=== PATIENT | female | born 1955 | race Caucasian/White ===

== ENCOUNTER 2021-05-30 13:44 | Emergency (ER) | payer MEDICARE, MEDICAID ==
[~2021-05-30] VITALS: Ht 160 cm; Wt 47.7 kg
[~2021-05-30 13:44] MED LIST: ALPR0.5T8 PO; ASPI-1009 PO; CLOP75TA33 PO; DOCU100C40 PO; HYDR1TAB PO; MIRT-116 PO; PHEN100C4 PO; SIMV20TA5 PO
[2021-05-30 14:18] LABS: BASOPHILS % (AUTO) 0.3 % (0-1); EOSINOPHILS # (AUTO) 0.2 X10'3 (0-0.9); EOSINOPHILS % (AUTO) 3.8 % (0-6); HEMATOCRIT 34.7 % (35.0-45.0); LYMPHOCYTES # (AUTO) 0.6 X10'3 (1.1-4.8); LYMPHOCYTES % (AUTO) 13.9 % (21-51); MEAN CORPUSCULAR HEMOGLOBIN 25.1 PG (27.0-31.0); MEAN CORPUSCULAR HGB CONC 31.8 g/dL (33.0-36.5); MEAN CORPUSCULAR VOLUME 78.9 FL (78-98); MEAN PLATELET VOLUME 7.5 FL (7.4-10.4); MONOCYTES # (AUTO) 0.4 X10'3 (0-0.9); NEUTROPHILS # (AUTO) 3.4 X10'3 (1.8-7.7); PLATELET COUNT 200 X10'3 (140-440); RED BLOOD COUNT 4.39 X10'6 (4.20-5.60); RED CELL DISTRIBUTION WIDTH 15.4 % (11.5-14.5); WHITE BLOOD COUNT 4.6 X10'3 (4.5-11.0)
[2021-05-30 14:36] LABS: ALANINE AMINOTRANSFERASE 25 U/L (12-78); ALBUMIN 3.2 G/DL (3.4-5.0); ALBUMIN/GLOBULIN RATIO 0.8 (1.1-1.5); ALKALINE PHOSPHATASE 358 IU/L (46-116); ANION GAP 4 (8-16); ASPARTATE AMINO TRANSFERASE 24 U/L (10-37); BILIRUBIN,TOTAL 0.2 MG/DL (0.1-1.0); CALCIUM 8.5 MG/DL (8.5-10.1); CHLORIDE 108 MMOL/L (99-107); GLUCOSE 133 MG/DL (70-104); SODIUM 141 MMOL/L (135-145); TOTAL CARBON DIOXIDE 29.4 MMOL/L (24-32); TOTAL PROTEIN 7.4 G/DL (6.4-8.2)
[2021-05-30 14:44] LABS: BLOOD UREA NITROGEN 20 MG/DL (7-18); CREATININE 0.21 MG/DL (0.40-0.90); eGFR > 90 ML/MIN
[2021-05-30 14:46] LABS: BUN/CREATININE RATIO 95.2 (6.6-38.0)
[2021-05-30] MEDS ORDERED: normal saline 1000ML IV soln IVB ONE (15:30)
[2021-05-30 17:58] VITALS: BP 145/70
== END 2021-05-30 17:46 | disposition home or self-care (01) ==
LOC: ER 13:45
DX: R42 Dizziness and giddiness (principal); R94.4 Abnormal results of kidney function studies; R74.8 Abnormal levels of other serum enzymes; G82.20 Paraplegia, unspecified; R53.1 Weakness; G89.29 Other chronic pain; M25.512 Pain in left shoulder; M87.9 Osteonecrosis, unspecified; Z88.2 Allergy status to sulfonamides; Z88.1 Allergy status to other antibiotic agents; Z79.82 Long term (current) use of aspirin; Z79.899 Other long term (current) drug therapy; Z95.5 Presence of coronary angioplasty implant and graft
CPT/HCPCS: 36415; 71045; 80053; 83880; 84484; 85025; 93005; 96360; 99285; J7030

== ENCOUNTER 2022-08-19 10:34 | Emergency (ER) | payer MEDICARE, MEDICAID ==
[~2022-08-19] VITALS: Ht 160 cm; Wt 45.5 kg
[2022-08-19 10:41] VITALS: BP 133/85
[2022-08-19] MEDS ORDERED: CefTRIAXone/D5W-Rocephin 1gm 50 ML IV ONE (11:25)
[2022-08-19] MEDS ORDERED: methylPREDNISolone sod succ 125mg/2ml vial IV ONE (11:25)
[2022-08-19] MEDS ORDERED: ipratropium/albuterol 3ml nebule NEB ONE (11:25)
[2022-08-19 11:35] LABS: BASOPHILS % (AUTO) 0.5 % (0-1); EOSINOPHILS # (AUTO) 0.2 X10'3 (0-0.9); EOSINOPHILS % (AUTO) 2.7 % (0-6); HEMATOCRIT 37.3 % (35.0-45.0); HEMOGLOBIN 11.8 g/dl (12.0-16.0); LYMPHOCYTES # (AUTO) 0.8 X10'3 (1.1-4.8); LYMPHOCYTES % (AUTO) 14.3 % (21-51); MEAN CORPUSCULAR HEMOGLOBIN 25.5 PG (27.0-31.0); MEAN CORPUSCULAR HGB CONC 31.7 g/dL (33.0-36.5); MEAN CORPUSCULAR VOLUME 80.3 FL (78-98); MEAN PLATELET VOLUME 7.2 FL (7.4-10.4); MONOCYTES # (AUTO) 0.6 X10'3 (0-0.9); MONOCYTES % (AUTO) 10.7 % (2-12); NEUTROPHILS # (AUTO) 4.3 X10'3 (1.8-7.7); NEUTROPHILS % (AUTO) 71.8 % (42-75); PLATELET COUNT 226 X10'3 (140-440); RED BLOOD COUNT 4.65 X10'6 (4.20-5.60); RED CELL DISTRIBUTION WIDTH 15.5 % (11.5-14.5); WHITE BLOOD COUNT 5.9 X10'3 (4.5-11.0)
[2022-08-19 11:38] LABS: ALANINE AMINOTRANSFERASE 17 U/L (12-78); ALBUMIN 3.3 G/DL (3.4-5.0); ALBUMIN/GLOBULIN RATIO 0.8 (1.1-1.5); ALKALINE PHOSPHATASE 358 IU/L (46-116); ANION GAP 10 (8-16); ASPARTATE AMINO TRANSFERASE 11 U/L (10-37); BILIRUBIN,TOTAL 0.3 MG/DL (0.1-1.0); BLOOD UREA NITROGEN 7 MG/DL (7-18); CALCIUM 9.7 MG/DL (8.5-10.1); CHLORIDE 105 MMOL/L (99-107); CREATININE 0.35 MG/DL (0.40-0.90); GLUCOSE 115 MG/DL (70-104); SODIUM 142 MMOL/L (135-145); TOTAL CARBON DIOXIDE 27.5 MMOL/L (24-32); TOTAL PROTEIN 7.6 G/DL (6.4-8.2); eGFR > 90 ML/MIN
[2022-08-19] MEDS ORDERED: AZIT-164 PO (12:10)
[2022-08-19] MEDS ORDERED: PRED20TA PO (12:10)
== END 2022-08-19 12:41 | disposition home or self-care (01) ==
LOC: ER 10:35
DX: J44.1 Chronic obstructive pulmonary disease with (acute) exacerbation (principal); Z20.822 Contact with and (suspected) exposure to COVID-19; Z88.2 Allergy status to sulfonamides; Z88.1 Allergy status to other antibiotic agents
CPT/HCPCS: 36415; 71045; 80053; 83605; 83880; 85025; 87040; 87811; 93005; 94640; 96365; 96375; 99285; J0696; J2930; 94760; A4615

== ENCOUNTER 2023-09-25 11:39 | Emergency (ER) | payer MEDICARE, MEDICAID ==
[~2023-09-25 11:39] MED LIST changes: -MIRT-116 PO; +MIRT-142 PO
[2023-09-25 12:34] LABS: BASOPHILS % (AUTO) 0.7 % (0-1); EOSINOPHILS # (AUTO) 0.4 X10'3 (0-0.9); EOSINOPHILS % (AUTO) 5.4 % (0-6); HEMATOCRIT 37.2 % (35.0-45.0); HEMOGLOBIN 11.8 g/dl (12.0-16.0); LYMPHOCYTES # (AUTO) 0.8 X10'3 (1.1-4.8); LYMPHOCYTES % (AUTO) 11.8 % (21-51); MEAN CORPUSCULAR HEMOGLOBIN 25.8 PG (27.0-31.0); MEAN CORPUSCULAR HGB CONC 31.7 g/dL (33.0-36.5); MEAN CORPUSCULAR VOLUME 81.2 FL (78-98); MEAN PLATELET VOLUME 8.1 FL (7.4-10.4); MONOCYTES # (AUTO) 0.6 X10'3 (0-0.9); MONOCYTES % (AUTO) 8.5 % (2-12); NEUTROPHILS % (AUTO) 73.6 % (42-75); PLATELET COUNT 207 X10'3 (140-440); RED BLOOD COUNT 4.58 X10'6 (4.20-5.60); RED CELL DISTRIBUTION WIDTH 15.8 % (11.5-14.5); WHITE BLOOD COUNT 6.7 X10'3 (4.5-11.0)
[2023-09-25] MEDS ORDERED: albuterol 2.5 MG/3 ML nebule CONTNEB PRN (12:40)
[2023-09-25] MEDS: ipratropium 0.5 MG/2.5ML nebule IH ONE (12:54)
[2023-09-25 12:55] LABS: ALBUMIN 3.1 G/DL (3.4-5.0); ANION GAP 11 (8-16); BLOOD UREA NITROGEN 14 MG/DL (7-18); BUN/CREATININE RATIO 43.8 (10.0-20.0); CALCIUM 9.5 MG/DL (8.5-10.1); CHLORIDE 103 MMOL/L (99-107); CREATININE 0.32 MG/DL (0.40-0.90); GLUCOSE 106 MG/DL (70-104); POTASSIUM 4.2 MMOL/L (3.5-5.1); PRO BRAIN NATRIURETIC PEPTIDE 562 PG/ML (0-125); SODIUM 142 MMOL/L (135-145); TOTAL CARBON DIOXIDE 28.1 MMOL/L (24-32); eGFR > 90 ML/MIN
[2023-09-25 12:58] VITALS: PULSE 87; RESP 18; O2SAT 98
[2023-09-25 13:35] VITALS: PULSE 103; RESP 24; O2SAT 99
[2023-09-25] MEDS: methylPREDNISolone sod succ 125mg/2ml vial IV ONE (14:59)
[2023-09-25] MEDS: magnesium sulf-water 2g/50mL 50 ML IV ONE (15:00)
[2023-09-25] MEDS ORDERED: PRED20TA PO (17:11)
[2023-09-25 18:11] VITALS: BP 117/58; PULSE 93; RESP 17; TEMP 98.3; O2SAT 96
== END 2023-09-25 18:15 | disposition home or self-care (01) ==
LOC: ER 11:39
DX: J45.901 Unspecified asthma with (acute) exacerbation (principal); Z20.822 Contact with and (suspected) exposure to COVID-19; Z88.2 Allergy status to sulfonamides; Z79.82 Long term (current) use of aspirin; Z79.899 Other long term (current) drug therapy
CPT/HCPCS: 36415; 71046; 80048; 83605; 83880; 85025; 87040; 87502; 87503; 87811; 94640; 96365; 96366; 96375; 99284; A7015; J2919; Z7610; 94760; 96361; 96374

== ENCOUNTER 2023-10-11 12:41 | Emergency (ER) | payer MEDICARE, MEDICAID ==
[~2023-10-11] VITALS: Ht 160 cm; Wt 50.0 kg
[~2023-10-11 12:41] MED LIST changes: +PRED20TA PO
[2023-10-11 13:26] LABS: BASOPHILS % (AUTO) 0.3 % (0-1); EOSINOPHILS # (AUTO) 0.1 X10'3 (0-0.9); EOSINOPHILS % (AUTO) 2.4 % (0-6); HEMOGLOBIN 11.9 g/dl (12.0-16.0); LYMPHOCYTES # (AUTO) 0.4 X10'3 (1.1-4.8); LYMPHOCYTES % (AUTO) 7.5 % (21-51); MEAN CORPUSCULAR HEMOGLOBIN 25.7 PG (27.0-31.0); MEAN CORPUSCULAR VOLUME 80.3 FL (78-98); MEAN PLATELET VOLUME 7.6 FL (7.4-10.4); MONOCYTES # (AUTO) 0.7 X10'3 (0-0.9); MONOCYTES % (AUTO) 11.9 % (2-12); NEUTROPHILS # (AUTO) 4.3 X10'3 (1.8-7.7); NEUTROPHILS % (AUTO) 77.9 % (42-75); PLATELET COUNT 185 X10'3 (140-440); RED BLOOD COUNT 4.61 X10'6 (4.20-5.60); RED CELL DISTRIBUTION WIDTH 15.8 % (11.5-14.5); WHITE BLOOD COUNT 5.6 X10'3 (4.5-11.0)
[2023-10-11 13:49] LABS: ANION GAP 5 (8-16); BLOOD UREA NITROGEN 13 MG/DL (7-18); BUN/CREATININE RATIO 40.6 (10.0-20.0); CALCIUM 9.4 MG/DL (8.5-10.1); CHLORIDE 103 MMOL/L (99-107); CREATININE 0.32 MG/DL (0.40-0.90); GLUCOSE 143 MG/DL (70-104); POTASSIUM 3.5 MMOL/L (3.5-5.1); PRO BRAIN NATRIURETIC PEPTIDE 590 PG/ML (0-125); SODIUM 137 MMOL/L (135-145); TOTAL CARBON DIOXIDE 29.4 MMOL/L (24-32); eCRCL 135 ML/MIN; eGFR > 90 ML/MIN
[2023-10-11 15:25] VITALS: BP 120/70; PULSE 88; RESP 22; TEMP 98.2; O2SAT 97
== END 2023-10-11 15:26 | disposition home or self-care (01) ==
LOC: ER 12:42
DX: R06.09 Other forms of dyspnea (principal); J44.9 Chronic obstructive pulmonary disease, unspecified; Z88.2 Allergy status to sulfonamides; Z79.899 Other long term (current) drug therapy; Z79.82 Long term (current) use of aspirin; Z79.52 Long term (current) use of systemic steroids
CPT/HCPCS: 36415; 71045; 80048; 83880; 84484; 85025; 93005; 93880; 99285

== ENCOUNTER → 2025-02-07 | Emergency (ER) | payer MEDICARE, MEDICAID ==
[~2025-02-07] VITALS: Ht 160 cm; Wt 41.0 kg
[~2025-02-07] MED LIST changes: +ALBU18HF2 INH; +CEFP100S9 PO; +FERR325T28 PO; +FURO-150 PO; -PRED20TA PO; +ROSU40TA89 PO
--- NOTE | 2025-02-07 13:59 | Physician Documentation ---
History of Present Illness General Chief Complaint: Dizziness Stated Complaint: TREMORS Time Seen by MD: 13:40 History of Present Illness Initial Comments Patient has a history of seizures she takes Dilantin, patient has had several episodes of dizziness and shaking over last several days and she had an episode today which started a proximally an hour prior [facility]. The patient states he is feeling weak she has had multiple episodes like this she denies any fevers she thinks it might be related to her Dilantin she states she took 200 mg of her Dilantin last night instead of her normal 300. The patient denies any urinary symptoms the patient's symptoms are mild and persistent she denies any shortness of breath or chest pain. Medication Reconciliation Allergies: Coded Allergies: Sulfa (Sulfonamide Antibiotics) (Verified Allergy, Unknown, 02/07/25) levofloxacin (Verified Allergy, Unknown, 02/07/25) famotidine (Unverified Adverse Reaction, Severe, severe diarrhea, 02/07/25) Scheduled Aspirin (Aspirin), 325 MG PO HS, (Reported) Cefpodoxime Proxetil (Cefpodoxime Proxetil), 1 TAB PO Q12H Clopidogrel Bisulfate (Clopidogrel), 75 MG PO DAILY, (Reported) Docusate Sodium (Docusate Sodium), 2 CAP PO BID, (Reported) Ferrous Sulfate* (Ferrous Sulfate*), 1 TAB PO DAILY, (Reported) Furosemide* (Lasix*), 1 TAB PO DAILY, (Reported) Mirtazapine (Remeron), 15 MG PO HS, (Reported) Phenytoin Sodium Extended (Dilantin), 400 MG PO DAILY, (Reported) Rosuvastatin Calcium (Rosuvastatin Calcium), 1 TAB PO DAILY, (Reported) Scheduled PRN Albuterol Sulfate (Ventolin Hfa), 2 PUFFS INH Q4HPRN PRN for wheezing, (Reported) Discontinued Medications Alprazolam (Alprazolam), 0.25 MG PO HS, (Reported) Discontinued Reason: patient no longer taking Docusate Sodium (Docusate Sodium), 100 MG PO HS, (Reported) Discontinued Reason: patient no longer taking Hydrocodone/Acetaminophen (Vicodin 5-500 Tablet), 1 TAB PO BID, (Reported) Discontinued Reason: patient no longer taking Simvastatin (Simvastatin), 20 MG PO HS, (Reported) Discontinued Reason: patient no longer taking Past Medical History Past Medical History: Seizures, COPD, *INFECTIOUS DZ* Review of Systems All Other Systems at this time: Reviewed and Negative Physical Exam Physical Exam Vital Signs: Heart Rate: 123, Respiratory Rate: 18, BP: 181/139, Pulse Oximetry: 97, Weight: 41.000 Physical Exam VITALS: Reviewed and as above. GENERAL: Alert, no apparent distress. HEENT: Normocephalic, atraumatic, PERRL, EOMI, dry mucosa, no erythema RESPIRATORY: Lungs clear, normal breath sounds, no respiratory distress. CHEST: No accessory muscle use, no retractions CV: Tachycardic rate, rhythm, no edema, no murmur, No: JVD GI: Soft, non-tender, bowels sounds present, no rebound, guarding, or rigidity BACK: No CVA tenderness, or swelling MUSCULOSKELETAL: No deformities, no edema SKIN: Warm and dry, pale NEURO: Oriented x4, mild resting tremor of the upper extremities PSYCH: Normal mood and affect, no agitation Progress Results/Orders Results/Orders Orders - JERARDO CORONA MD Chest,Single View (02/07/25 13:12) Monitor (02/07/25 13:12) Saline Lock (02/07/25 13:12) Oxygen (02/07/25 13:12) Hs Troponin I W Calculations (02/07/25 16:12) Cult Urine + [place] [address] (02/07/25 16:31) Completed Orders - JERARDO CORONA MD Chest,Single View (02/07/25 13:12) Cbc/Diff (02/07/25 13:12) BMP (02/07/25 13:12) PBNP (02/07/25 13:12) Electrocardiogram (02/07/25 13:12) Hs Troponin I W Calculations (02/07/25 13:12) Hs Troponin I W Calculations (02/07/25 15:12) Normal Saline 1000ml (0.9% Sodium Chlori (02/07/25 13:40) Procalcitonin (02/07/25 13:40) Phenytoin (02/07/25 13:51) Lorazepam Tablet (Ativan Tablet) (02/07/25 14:33) Ua W/Microscopic, Cult If Ind (02/07/25 16:01) Ceftriaxone/A6a-[id number] 1gm (Rocephin 1 (02/07/25 17:00) Vital Signs 02/07/25 02/07/25 02/07/25 02/07/25 13:06 14:39 14:42 14:45 Pulse 123 99 Resp 18 14 16 B/P (MAP) 181/139 137/117 (124) Pulse Ox 97 97 02/07/25 15:42 Temp 98.2 Pulse 95 Resp 16 B/P (MAP) 105/62 (76) Pulse Ox 97 O2 Flow Rate 0 Laboratory Tests Test 02/07/25 13:51 02/07/25 14:51 02/07/25 16:01 02/07/25 16:13 White Blood Count 8.7 Red Blood Count 4.79 Hemoglobin 12.4 Hematocrit 38.2 Mean Corpuscular Volume 79.7 Mean Corpuscular Hemoglobin 25.9 L Mean Corpuscular Hemoglobin Concent 32.5 L Red Cell Distribution Width 15.0 H Platelet Count 231 Mean Platelet Volume 7.3 L Neutrophils (%) (Auto) 85.2 H Lymphocytes (%) (Auto) 6.1 L Monocytes (%) (Auto) 7.5 Eosinophils (%) (Auto) 0.8 Basophils (%) (Auto) 0.4 Neutrophils # (Auto) 7.4 Lymphocytes # (Auto) 0.5 L Monocytes # (Auto) 0.7 Eosinophils # (Auto) 0.1 Basophils # (Auto) 0.0 CBC Comment Sodium Level 141 Potassium Level 3.6 Chloride Level 102 Carbon Dioxide Level 32.2 H Anion Gap 7 L Blood Urea Nitrogen 15 Creatinine 0.34 L Estimated GFR/1.73 m2 > 90 BUN/Creatinine Ratio 44.1 H Glucose Level 136 H Calcium Level 9.1 Troponin I High Sensitivity 11 22 Pro-B-Type Natriuretic Peptide 675 H Albumin 3.4 Procalcitonin < 0.05 Chemistry Comments Phenytoin (Dilantin) Level 11.9 Glucometer 108 H Urine Specimen Description Straight cath Urine Color Straw Urine Clarity Clear Urine pH 7.0 Urine Specific [place] 1.010 Urine Protein Negative Urine Glucose (UA) Negative Urine Ketones Negative Urine Occult Blood Trace-intact Urine Nitrite Negative Urine Bilirubin Negative Urine Urobilinogen 0.2 Urine Leukocyte Esterase Moderate H Urine RBC 0-2 Urine WBC 10-20 H Urine Squamous Epithelial Cells None seen Urine Transitional Epithelial Cells Few Urine Bacteria None seen Urine Culture Indicated Indicated Volume Urine Centrifuged 10 ml Urine Comment Troponin I High Sens Percent Delta 100 Troponin I Hi Sens Absolute Change 11 Microbiology Date/Time Source Procedure Growth Status 02/07/25 16:31 Urine Straight Cath Urine Culture - Preliminary NO GROWTH AFTER 1 DAY Resulted Medical Decision Making Additional information obtaine: old records Findings The patient's EKG demonstrates sinus rhythm with a rate of [address] abnormalities there was no ST-elevation or ST-depression and has a normal axis it is interpreted as an abnormal EKG time of interpretation was 1526 The patient presented emergency room with tremors that were small resting shaking of her upper extremity. It did not appear to be any seizure like activity. 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 Patient was hydrated and found to have a urinary tract infection, treated for the infection her Pro level was checked, the patient is improved she will be discharged. Differential Diagnosis uti, seizure, drug toxicity Departure Impression: Primary Impression: Urinary tract infection Qualified Codes: N30.00 - Acute cystitis without hematuria Additional Impression: Dehydration Discharge Instructions: Urinary Tract Infection, Adult Referrals: NO PRIMARY CARE PROVIDER (PCP) Prescriptions Cefpodoxime Proxetil (Cefpodoxime Proxetil) 100 Mg/5 Ml Susp.recon 1 TAB PO Q12H for 7 Days, #14 TAB 0 Refills Prov: JERARDO CORONA MD 02/07/25 Signature Scribe Signature: no scribe Attestation: The note accurately reflects work and decisions made by me.Jerardo Corona MD 02/08/25 13:56 JERARDO CORONA MD Feb 07, 2025 13:59
[2025-02-07 14:00] LABS: MEAN PLATELET VOLUME 7.3 FL (7.4-10.4); RED CELL DISTRIBUTION WIDTH 15.0 % (11.5-14.5)
--- NOTE | 2025-02-07 14:21 | RADIOLOGY REPORT ---
Procedure: DI CHEST,SINGLE VIEW History: CP Comparison: DI CHEST,SINGLE VIEW on DOS: 10/11/23, Technique: Single view of the chest. Findings: The lung parenchyma is clear. Hyperinflated lungs compatible with emphysema. No pleural effusion. The cardiomediastinal silhouette is stable. Impression: 1. No acute cardiopulmonary disease.
[2025-02-07] MEDS: normal saline 1000ML IV soln IVB ONE (14:25)
[2025-02-07 14:29] LABS: CREATININE 0.34 MG/DL (0.40-0.90); PRO BRAIN NATRIURETIC PEPTIDE 675 PG/ML (0-125); TOTAL CARBON DIOXIDE 32.2 MMOL/L (24-32); eCRCL 103 ML/MIN; eGFR > 90 ML/MIN
--- NOTE | 2025-02-07 15:25 | ELECTROCARDIOGRAPH REPORT ---
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 ELIANA Frost Measurements Intervals [place] Rate: 93 P: 81 NC: 215 QRS: 72 QRSD: 73 T: 87 QT: 366 QTc: 456 Interpretive Statements Sinus rhythm Prolonged NC interval Probable left atrial enlargement Anteroseptal infarct, age indeterminate Baseline wander in lead(s) I,II,III,aVR,aVF,V1,V2,V3,V4,V5,V6 Electronically Signed On 02-09-2025 16:51:[address] ELIANA Frost Please click the below link to view image of tracing.
[2025-02-07 15:42] VITALS: BP 105/62; PULSE 95; RESP 16; TEMP 98.2; O2SAT 97
[2025-02-07 16:16] LABS: LEUKOCYTE ESTERASE ,URINE MODERATE (Neg); NITRITES, URINE NEGATIVE (Neg); OCCULT BLOOD,URINE TRACE-INTACT (Neg)
[2025-02-07 16:28] LABS: UA COLLECTION TYPE STRAIGHT CATH
[2025-02-07 16:30] LABS: SQUAMOUS EPITHELIAL CELL,UR NONE SEEN /LPF (FEW)
[2025-02-07] MEDS: CefTRIAXone/D5W-Rocephin 1gm 50 ML IV ONE (17:22)
== END | disposition home or self-care (01) ==
LOC: ER 13:00
DX: N39.0 Urinary tract infection, site not specified (principal); J44.9 Chronic obstructive pulmonary disease, unspecified; E86.0 Dehydration; Z88.2 Allergy status to sulfonamides; Z88.1 Allergy status to other antibiotic agents; Z88.8 Allergy status to other drugs, medicaments and biological substances; Z79.82 Long term (current) use of aspirin; Z79.899 Other long term (current) drug therapy
CPT/HCPCS: 36415; 71045; 80048; 80185; 81001; 82948; 83880; 84145; 84484; 85025; 87088; 93005; 96361; 96365; 99285; J0696; J7030; 87186